=== PATIENT | female | born 1980 | race American Indian/Alaskan Native ===

== ENCOUNTER 2017-03-29 23:25 | Emergency (ER) | payer SELFPAY ==
[2017-03-30 00:25] LABS: Basophils % (Auto) 0.7 % (0.0-1.8); Eosinophils % (Auto) 1.1 % (0.0-4.3); Hematocrit 35.7 % (30.3-42.9); Hemoglobin 11.7 gm/dl (10.1-14.3); Mean Corpuscular HGB Conc 33 % (30-34); Mean Corpuscular Hemoglobin 28 pg (28-32); Mean Corpuscular Volume 85 fl (79-97); Platelet Count 296 K/mm3 (140-440); Red Blood Count 4.19 M/mm3 (3.65-5.03); Red Cell Distribution Width 14.3 % (13.2-15.2); White Blood Count 5.8 K/mm3 (4.5-11.0)
[2017-03-30 00:39] LABS: Alanine Aminotransferase 11 units/L (7-56); Albumin 3.8 g/dL (3.9-5); Alkaline Phosphatase 83 units/L (35-129); BUN/Creatinine Ratio 20; Blood Urea Nitrogen 12 mg/dL (7-17); Calcium 9.1 mg/dL (8.4-10.2); Carbon Dioxide 21 mmol/L (22-30); Glucose 99 mg/dL (65-100); Lipase 27 units/L (13-60); Total Protein 7.6 g/dL (6.3-8.2)
[2017-03-30 00:40] LABS: Anion Gap 18 mmol/L; Chloride 105.8 mmol/L (98-107); Potassium 3.9 mmol/L (3.6-5.0); Sodium 141 mmol/L (137-145)
[2017-03-30 02:57] LABS: Bacteria,Urine 3+ /HPF (Negative); Mucus,Urine 3+ /HPF
[2017-03-30 03:01] LABS: Bilirubin,Urine Negative (Negative); Blood,Urine Small (Negative); Ketones,Urine Negative (Negative)
[2017-03-30 03:02] LABS: Leukocyte Esterase,Urine Moderate (Negative); Nitrite,Urine Positive (Negative); Urobilinogen,Urine < 2.0 mg/dL (<2.0)
--- NOTE | 2017-03-30 03:52 | Emergency Department Report ---
ED Female HPI - General Chief complaint: Abdominal Pain Stated complaint: LOWER ABD PAIN Time Seen by Provider: 03/30/17 03:41 Source: patient Mode of arrival: Ambulatory Limitations: No Limitations - History of Present Illness Initial comments: Patient is a 36-year-old -[place] female who presents for dysuria, urgency and urinary frequency x 4 days patient denies fever chills no nausea vomiting no vaginal discharge. MD Complaint: dysuria Onset/Timin -: days(s) Severity: moderate Severity scale (0 -10): 4 Quality: aching Consistency: intermittent Improves with: none Worsens with: urination Are you Now?: No Last Menstrual Period: 03/16/17 EDC: 12/21/17 Associated Symptoms: dysuria. denies: nausea/vomiting, fever/chills, headaches , syncope, weakness - Related Data Sexually active: Yes Previous Rx's Medication Instructions Recorded Last Taken Type Acetaminophen/Codeine [Tylenol #3] 1 tab PO Q6H PRN #20 tab 04/20/15 Unknown Rx Cyclobenzaprine [Flexeril] 10 mg PO TID PRN #20 tablet 04/20/15 Unknown Rx Ibuprofen [Motrin 800 MG tab] 800 mg PO Q8HR PRN #30 tablet 04/20/15 Unknown Rx Cephalexin [Keflex] 500 mg PO Q12HR #14 cap 03/30/17 Unknown Rx Ibuprofen 800 mg PO TID PRN #30 tablet 03/30/17 Unknown Rx Allergies Allergy/AdvReac Type Severity Reaction Status Date / Time No Known Allergies Allergy Unverified 04/20/15 17:58 ED Review of Systems ROS: Stated complaint: LOWER ABD PAIN Other details as noted in HPI Constitutional: denies: chills, fever Eyes: denies: eye pain, eye discharge, vision change ENT: denies: ear pain, throat pain Respiratory: denies: cough, shortness of breath, wheezing Cardiovascular: denies: chest pain, palpitations Endocrine: no symptoms reported Gastrointestinal: denies: abdominal pain, nausea, diarrhea Genitourinary: denies: urgency, dysuria, discharge Musculoskeletal: denies: back pain, joint swelling, arthralgia Skin: denies: rash, lesions Neurological: denies: headache, weakness, paresthesias Psychiatric: denies: anxiety, depression Hematological/Lymphatic: denies: easy bleeding, easy bruising ED Past Medical Hx - Past Medical History Previous Medical History?: Yes Additional medical history: Obesity - Surgical History Past Surgical History?: Yes Additional Surgical History: Tubal - Social History Smoking Status: Never Smoker Substance Use Type: None - Medications Home Medications: Home Medications Medication Instructions Recorded Confirmed Last Taken Type Acetaminophen/Codeine [Tylenol #3] 1 tab PO Q6H PRN #20 tab 04/20/15 Unknown Rx Cyclobenzaprine [Flexeril] 10 mg PO TID PRN #20 tablet 04/20/15 Unknown Rx Ibuprofen [Motrin 800 MG tab] 800 mg PO Q8HR PRN #30 tablet 04/20/15 Unknown Rx Cephalexin [Keflex] 500 mg PO Q12HR #14 cap 03/30/17 Unknown Rx Ibuprofen 800 mg PO TID PRN #30 tablet 03/30/17 Unknown Rx ED Physical Exam - General Limitations: No Limitations General appearance: alert, in no apparent distress - Head Head exam: Present: atraumatic, normocephalic - Eye Eye exam: Present: normal appearance, PERRL, EOMI Pupils: Absent: normal accommodation - ENT ENT exam: Present: mucous membranes moist - Neck Neck exam: Present: normal inspection, full ROM. Absent: lymphadenopathy, thyromegaly - Respiratory Respiratory exam: Present: normal lung sounds bilaterally. Absent: wheezes, rhonchi - Cardiovascular Cardiovascular Exam: Present: regular rate, normal rhythm. Absent: systolic murmur, diastolic murmur, rubs, gallop - GI/Abdominal GI/Abdominal exam: Present: soft, normal bowel sounds. Absent: distended, tenderness, guarding, rebound, rigid, mass, bruit, pulsatile mass - Rectal Rectal exam: Present: deferred - Extremities Exam Extremities exam: Present: normal inspection, full ROM, normal capillary refill. Absent: tenderness - Back Exam Back exam: Present: normal inspection, full ROM. Absent: tenderness, CVA tenderness (R), CVA tenderness (L), muscle spasm, paraspinal tenderness, vertebral tenderness, rash noted - Neurological Exam Neurological exam: Present: alert, oriented X3 - Psychiatric Psychiatric exam: Present: normal affect, normal mood - Skin Skin exam: Present: warm, dry, intact, normal color. Absent: rash ED Course Vital Signs 03/29/17 23:32 Temperature 98.5 F Pulse Rate 92 H Respiratory 18 Rate Blood Pressure 161/101 [Right] O2 Sat by Pulse 100 Oximetry ED Medical Decision Making - Lab Data Result diagrams: 03/30/17 00:05 03/30/17 00:05 Laboratory Tests 03/29/17 03/30/17 03/30/17 Unknown 00:05 00:05 WBC 5.8 RBC 4.19 Hgb 11.7 Hct 35.7 MCV 85 MCH 28 MCHC 33 RDW 14.3 Plt Count 296 Lymph % (Auto) 35.8 H [place] % (Auto) 11.4 H Eos % (Auto) 1.1 Baso % (Auto) 0.7 Lymph # 2.1 [place] # 0.7 Eos # 0.1 Baso # 0.0 Seg Neutrophils % 51.0 Seg Neutrophils # 3.0 Sodium 141 Potassium 3.9 Chloride 105.8 Carbon Dioxide 21 L Anion Gap 18 BUN 12 Creatinine 0.6 L Estimated GFR > 60 BUN/Creatinine Ratio 20 Glucose 99 Calcium 9.1 Total Bilirubin 0.20 AST 15 ALT 11 Alkaline Phosphatase 83 Total Protein 7.6 Albumin 3.8 L Albumin/Globulin Ratio 1.0 Lipase 27 HCG, Qual Urine Color Yellow Urine Turbidity Slightly cloudy Urine pH 5.0 Ur Specific [place] 1.035 H Urine Protein 30 mg/dl Urine Glucose (UA) Negative Urine Ketones Negative Urine Blood Small A Urine Nitrite Positive Ur Reducing Substances Not Reportable Urine Bilirubin Negative Urine Ictotest Not Reportable Urine Urobilinogen < 2.0 Ur Leukocyte Esterase Moderate Urine WBC (Auto) 49.0 H Urine RBC (Auto) 45.0 U Epithel Cells (Auto) 64.0 H Urine Bacteria (Auto) 3+ Urine Mucus 3+ 03/30/17 00:05 WBC RBC Hgb Hct MCV MCH MCHC RDW Plt Count Lymph % (Auto) [place] % (Auto) Eos % (Auto) Baso % (Auto) Lymph # [place] # Eos # Baso # Seg Neutrophils % Seg Neutrophils # Sodium Potassium Chloride Carbon Dioxide Anion Gap BUN Creatinine Estimated GFR BUN/Creatinine Ratio Glucose Calcium Total Bilirubin AST ALT Alkaline Phosphatase Total Protein Albumin Albumin/Globulin Ratio Lipase HCG, Qual Negative Urine Color Urine Turbidity Urine pH Ur Specific [place] Urine Protein Urine Glucose (UA) Urine Ketones Urine Blood Urine Nitrite Ur Reducing Substances Urine Bilirubin Urine Ictotest Urine Urobilinogen Ur Leukocyte Esterase Urine WBC (Auto) Urine RBC (Auto) U Epithel Cells (Auto) Urine Bacteria (Auto) Urine Mucus - Medical Decision Making Patient presents for dysuria frequency and urgency UA nose positive nitrates and positive leukocytes positive WBCs patient denies vaginal discharge defers vaginal exam or STD screening or chills no fever there is no nausea vomiting plan treat for UTI with Keflex patient will be discharged to self in stable condition at this time and follow with PCP in 2-3 days pt verbalized agreement and understanding with discharge plan Critical care attestation.: If time is entered above; I have spent that time in minutes in the direct care of this critically ill patient, excluding procedure time. ED Disposition Clinical Impression: UTI (urinary tract infection) Qualifiers: Urinary tract infection type: acute cystitis Hematuria presence: without hematuria Qualified Code(s): N30.00 - Acute cystitis without hematuria Disposition: TO HOME OR SELFCARE Is pt being admited?: No Does the pt Need Aspirin: No Condition: Good Instructions: Urinary Tract Infection in Women (ED) Prescriptions: Cephalexin [Keflex] 500 mg PO Q12HR #14 cap Ibuprofen 800 mg PO TID PRN #30 tablet PRN Reason: Pain Referrals: SIGIFREDO SHARMA MD [Staff Physician] - 3-5 Days Forms: Work/School Release Form(ED) Time of Disposition: 03:54
[2017-03-30 03:59] VITALS: BP 158/96
== END 2017-03-30 03:59 | disposition home or self-care (01) ==
LOC: ED 23:25
DX: N30.00 Acute cystitis without hematuria (principal)
CPT/HCPCS: 36415; 80053; 81001; 83690; 84703; 85025; 99283